=== PATIENT | male | born 1990 | race Caucasian/White ===

== ENCOUNTER 2018-03-15 03:35 | Observation (INO) ==
[2018-03-15 04:21] LABS: C-Reactive Protein 1.1 mg/L (0.0-0.9)
--- NOTE | 2018-03-15 05:38 | Emergency Department Note ---
ED Disposition Clinical Impression: Dyskinesia of gallbladder Disposition: Admitted as Observation Condition on Discharge: Good Instructions: DI for Acute Abdomen Referrals: Ra Melgoza MD [Primary Care Provider] - - Critical Care Critical Care Time: No Attestation: On 03/15/18, the high probability of a clinically significant, sudden or life threatening deterioration of the following system(s) required my full and direct attention, intervention and personal management. The time I documented below is in addition to time spent performing reported procedures but includes the following listed in this critical care notation. Medical Decision Making - Medical Records Medical records reviewed: Yes: I reviewed the patient's medical records. - Cuate Inquiry Pt receiving controlled substance: No Vital Signs: 03/15/18 03:51 03/15/18 07:30 03/15/18 08:11 Temperature 98.3 F 99 F Temperature Source Oral Oral Pulse Rate [Right] 88 81 Respiratory Rate 24 Blood Pressure [Right Arm] 115/72 121/68 Blood Pressure Mean [Right Arm] 86 85 Blood Pressure Source [Right Arm] Blood Pressure Position [Right Arm] 02 Sat by Pulse Oximetry 97 97 03/15/18 08:43 Temperature 99.2 F Temperature Source Oral Pulse Rate [Right] 90 Respiratory Rate Blood Pressure [Right Arm] 102/53 L Blood Pressure Mean [Right Arm] 69 Blood Pressure Source [Right Arm] Automatic Cuff Blood Pressure Position [Right Arm] Sitting 02 Sat by Pulse Oximetry 100 - Lab Data Lab results reviewed: Yes: I reviewed the patient's lab results. Lab Results 03/15/18 03:50: ESR 8 03/15/18 03:50: Troponin I < 0.02, C-Reactive Protein 1.1 H 03/15/18 03:50: Lactate 1.4 Orders (Tests/Meds): ED MEDICATIONS Discontinued Medications Generic Name Dose Route Start Last Admin Trade Name Freq PRN Reason Stop Dose Admin Hydromorphone HCl 1 mg 03/15/18 07:25 03/15/18 07:35 Dilaudid 2mg/Ml Syringe IV 03/15/18 07:26 1 mg ONCE ONE Administration Sodium Chloride 1,000 mls @ 999 mls/hr 03/15/18 04:00 03/15/18 04:01 Sod Chlor 0.9% 1000ml Bag IV 03/15/18 05:00 999 mls/hr .Q1H1M LISSETT Administration Sodium Chloride 1,000 mls @ 999 mls/hr 03/15/18 05:00 03/15/18 05:00 Sod Chlor 0.9% 1000ml Bag IV 03/15/18 06:00 999 mls/hr .Q1H1M LISSETT Administration Morphine Sulfate 4 mg 03/15/18 03:48 03/15/18 04:01 Morphine 4mg/Ml Syringe IV 03/15/18 03:49 4 mg ONCE ONE Administration Ondansetron HCl 4 mg 03/15/18 03:48 03/15/18 04:01 Zofran 4mg/2ml Vial IV 03/15/18 03:49 4 mg ONCE ONE Administration Promethazine HCl 12.5 mg 03/15/18 07:25 03/15/18 07:35 Phenergan 25mg/Ml 1ml Vial IV 03/15/18 07:26 12.5 mg ONCE ONE Administration Sodium Chloride 25 ml 03/15/18 07:25 03/15/18 07:35 Sod Chlor 0.9% 25ml Bag IV 03/15/18 07:26 25 ml ONCE ONE Administration ORDERS Category Date Time Status US gallbladder Stat Exams 03/15/18 06:06 Ordered Blood Culture Stat Micro 03/15/18 03:53 Ordered - US Data US Images: Gallbladder ED US Reviewed: Yes: I have viewed radiologist's interpretation Findings Narrative: see report - Physician Consults Physician Consulted: quincy Reason -: Admission Additional Consult: umair Reason -: Pt condition Nausea/Vomiting/Diarrhea HPI - General Chief complaint: Abdominal Pain Stated complaint: seen earlier,difficulty breathing with pain Time Seen by Provider: 03/15/18 04:30 Mode of Arrival: Ambulatory Source of Information: Patient, Spouse, Medical Record Limitations: No Limitations Description of Symptoms (Recalled from ER Triage Doc. by RN): Pt seen here earlier for abdominal pain, NVD and is back for worsening abdominal pain and vomiting. Pt states his states is upigastric into SHAWN ribs and lower back. - History of Present Illness HPI Narrative: pt with rt sided abd pain and was seen in the ed earlier and returns with same pain - pt with no fever or rash but reports pain rad to back at this time MD complaint: nausea, vomiting, abdominal pain Onset (ago): hour(s) Associated Abdominal Pain: Yes Location of pain: RUQ Severity: moderate Associated symptoms: nausea/vomiting - Related Data Home Medications Medication Instructions Recorded Confirmed Omeprazole [Omeprazole 20mg 20 mg PO DAILY 03/15/18 03/15/18 Capsule] Allergies Allergy/AdvReac Type Severity Reaction Status Date / Time INGREDIENT: NO KNOWN - NO Allergy Unknown Uncoded 05/25/17 15:00 KNOWN DRUG ALLERGY [facility] History I have reviewed the patient's past medical history: Yes Medical History: Reports:: MRSA - Social History Alcohol Intake: never - Psychiatric History Expresses thoughts of harming self/others: None Suicide Plan Description: No Plan ROS Obtained: Yes All systems reviewed & no additional complaints - Constitutional Constitutional: Denies fever(s) - Eyes Eyes: Denies change in vision - ENT Ears, Nose, Mouth, and Throat: Denies sore throat - Cardiovascular Cardiovascular: Denies chest pain at rest - Respiratory Respiratory: No cough - Gastrointestinal Gastrointestingal: Reports: as per HPI, abdominal pain, nausea, vomiting. Denies: diarrhea - Genitourinary Male Genitourinary: Denies hematuria - Musculoskeletal Musculoskeletal: Denies joint pain, Denies joint swelling - Integumentary/Breasts Skin/Breast: Denies rash - Neurologic Neurologic: Denies seizure-like activity Physical Exam - General General appearance: alert, in no apparent distress - Head Head exam: normocephalic - Eye Eye exam: Present: PERRL, EOMI. Absent: scleral icterus - ENT ENT exam: Present: mucous membranes moist - Neck Neck exam: Present: trachea midline - Respiratory Respiratory exam: Absent: respiratory distress - Cardiovascular Cardiovascular exam: Present: regular rate - Abdominal Exam Abdominal exam: Present: tenderness, Martin's sign Abdominal tenderness: Present: RUQ, moderate - Extremities Exam Extremities exam: Present: full ROM - Back Exam Back exam: Absent: CVA tenderness (R) - Neurological Exam Neurological exam: Present: alert, oriented X3, CN II-XII intact - Psychiatric Psychiatric exam: Present: normal affect - Skin Skin exam: Absent: rash
--- NOTE | 2018-03-15 09:59 | Pharmacy Consult Notes ---
[facility] Pharmacy VTE Monitoring - Patient Demographics Admission date: 03/15/18 Report Date: 03/15/18 Time: 09:59 Allergies/Adverse Reactions: Patient Allergies INGREDIENT: NO KNOWN - NO KNOWN DRUG ALLERGY Allergy (Unknown, Uncoded 05/25/17 15:00) Height: 1.91 m Weight: 123.377 kg Patient Problems: Current Active Problems Dyskinesia of gallbladder (Acute) - VTE Risk Was VTE Risk Assessment Performed: Yes VTE Score: 0 VTE Risk Level: Very Low Risk - Prophylaxis VTE Prophylaxis Ordered?: Yes Types of VTE Prophylaxis: TEDS Knee High Location of Applied Device: Bilateral Lower Extremeties - VTE Diagnosis Confirmed Treatment or plan recommended: Continue Current Treatment
--- NOTE | 2018-03-15 10:05 | History & Physical Report ---
*Admission Date: 03/15/18 *Chief complaint: Abdominal pain, nausea vomiting and diarrhea *History of present illness: Mr. Brice is a 27-year-old male with history of GERD who was in his usual state of health when about 8 PM he started having acute upper abdominal pain with nausea, vomiting, and diarrhea. He does have a history of GERD but is otherwise healthy. He states he did eat pizza for dinner last night. He presented initially to the emergency room around around [address] of the abdomen and pelvis was negative for any acute findings. He received medication for his vomiting and pain and was discharged to home. After arriving at home he immediately began with ongoing upper abdominal pain along with the nausea, vomiting and the diarrhea. He thus again presented to the emergency room. With this visit patient received 2000 mL of IV fluid, IV morphine, Dilaudid, Phenergan and Zofran. An ultrasound of his right upper quadrant with results pending. He was then admitted for further evaluation and treatment with a surgical consult. At the time of this exam patient feels he is much more comfortable. He is not nauseated and has had no further diarrhea since being in the ER. He states the pain in his upper abdomen is mostly just an ache H History Medical History: Reports:: Gastroesophageal Reflux Disease(GERD), MRSA Denies:: Atherosclerotic Heart Disease, Cancer, Coronary Artery Disease, Diabetes Mellitus Type 1, Diabetes Mellitus Type 2, Internal Pacemaker Other Surgeries: No: Pacemaker Amputation: No Fractures: No Comment: Surgical debridement of lower infected leg - *Social History Educational Level: Attended High School Tobacco Type: smokeless tobacco Alcohol Intake: never Occupational Status: employed Housing: house Household Members: spouse - Psychiatric History Expresses thoughts of harming self/others: None Suicide Plan Description: No Plan *Family Hx:: no Cancer, no Coronary Artery Disease, no Diabetes Review of Systems - Constitutional Denies body ache(s), Denies fever(s), Denies headache(s) - Eyes Denies change in vision - ENT Denies ear pain, Denies headache(s) Comments: Scratchy throat from vomiting and dry heaves - *Cardiovascular Denies chest pain, Denies shortness of breath, Denies leg swelling - *Respiratory Denies chest congestion, Denies cough, Denies shortness of breath - *Gastrointestinal Reports abdominal pain, Reports cramping, Reports loose stools, Reports nausea, Reports vomiting, Denies constipation, Denies heartburn, Denies vomiting blood, Denies bright, red blood in stools, Denies black, tarry stools - *Genitourinary Denies difficulty urinating - *Musculoskeletal Reports muscle cramps - *Neurologic Denies confusion, Denies dizziness, Denies headache(s), Denies seizure-like activity Meds Home Medications Medication Instructions Recorded Confirmed Type Omeprazole [Omeprazole 20mg 20 mg PO DAILY 03/15/18 03/15/18 History Capsule] Allergies Allergy/AdvReac Type Severity Reaction Status Date / Time INGREDIENT: NO KNOWN - NO Allergy Unknown Uncoded 05/25/17 15:00 KNOWN DRUG ALLERGY Exam Vital signs and Labs for Last 24 Hours: Temp Pulse Resp BP Pulse Ox 98.9 F 83 16 116/51 L 96 03/15/18 09:15 03/15/18 09:15 03/15/18 09:15 03/15/18 09:15 03/15/18 09:15 Laboratory Results - last 24 hr 03/15/18 03:50: ESR 8 03/15/18 03:50: Troponin I < 0.02, C-Reactive Protein 1.1 H 03/15/18 03:50: Lactate 1.4 Laboratory Tests 03/14/18 03/14/18 03/15/18 23:50 23:50 03:50 WBC 7.8 RBC 5.57 Hgb 17.1 Hct 51.4 MCV 92.3 MCH 30.6 MCHC 33.2 RDW 12.7 Plt Count 176 MPV 9.2 Neut % (Auto) 73.1 Lymph % (Auto) 16.3 [place]ima % (Auto) 7.2 Eos % (Auto) 3.2 Baso % (Auto) 0.2 Neut # (Auto) 5.7 Lymph # (Auto) 1.3 [place] # (Auto) 0.6 Eos # (Auto) 0.3 Baso # (Auto) 0.0 Sodium 141 Potassium 3.9 Chloride 103 Carbon Dioxide 30 Anion Gap 11.9 BUN 21 H Creatinine 1.61 H Estimated Creat Clear 119 Estimated GFR 53 L Est GFR ( Amer) 64 Glucose 107 H Lactate Calcium 9.0 Total Bilirubin 1.0 AST 27 ALT 56 Alkaline Phosphatase 102 Troponin I < 0.02 C-Reactive Protein 1.1 H Total Protein 8.1 Albumin 4.0 Globulin 4.1 H Albumin/Globulin Ratio 1.0 L Amylase 78 Lipase 219 03/15/18 03:50 WBC RBC Hgb Hct MCV MCH MCHC RDW Plt Count MPV Neut % (Auto) Lymph % (Auto) [place]ima % (Auto) Eos % (Auto) Baso % (Auto) Neut # (Auto) Lymph # (Auto) [place]ima # (Auto) Eos # (Auto) Baso # (Auto) Sodium Potassium Chloride Carbon Dioxide Anion Gap BUN Creatinine Estimated Creat Clear Estimated GFR Est GFR ( Amer) Glucose Lactate 1.4 Calcium Total Bilirubin AST ALT Alkaline Phosphatase Troponin I C-Reactive Protein Total Protein Albumin Globulin Albumin/Globulin Ratio Amylase Lipase I & O for Last 24 hours: Intake & Output 03/12/18 03/13/18 03/14/18 03/15/18 11:59 11:59 11:59 11:59 Intake Total 1000 / 1000 Balance 1000 / 1000 Weight 272 lb Radiology Reports for the Last 24 Hours: 03/14/2018 IMPRESSION: No acute abdominal or pelvic findings. Splenomegaly 03/15/2018 IMPRESSION: 1. No acute finding. 2. Scattered small nodular opacities which may be due to old granulomatous disease. Stability may be confirmed with follow-up - Constitutional no acute distress - *Routine HEENT Exam Head: Present: normocephalic, atraumatic Eye: Present: PERRL. Absent: conjunctival icterus, scleral injection ENT: Present: mucous membranes moist, nares patent - *Routine Neck Exam Present: supple, full ROM. Absent: carotid bruit, lymphadenopathy, thyromegaly Comments: . Bearded - *Routine Respiratory Exam Present: CTA bilaterally (Anteriorly and posteriorly) - *Routine Cardiovascular Exam Present: RRR - *Routine Abdominal Exam Present: soft Comments: Decreased bowel sounds; mildly tender in epigastrium and right upper quadrant - *Routine Extremities Exam Present: pulses intact. Absent: edema, calf tenderness - *Routine Neurological Exam Present: alert, oriented X3 Assessment and Plan (1) GERD (gastroesophageal reflux disease) Current visit: Yes Status: Acute Category: Medical Code(s): K21.9 - Gastro-esophageal reflux disease without esophagitis (2) Abdominal pain in male Current visit: No Status: Acute Category: Medical Code(s): R10.9 - Unspecified abdominal pain (3) Renal insufficiency Current visit: No Status: Acute Category: Medical Code(s): N28.9 - Disorder of kidney and ureter, unspecified (4) Leg cramps Current visit: Yes Status: Acute Category: Medical Code(s): R25.2 - Cramp and spasm - Assessment and plan all Dx Assessment and Plan for all problems:: IV fluids. Pain and nausea management. Surgeon has been consulted. Await results of right upper quadrant ultrasound. Discussed with radiology and he did have this done prior to admission and results are pending.
--- NOTE | 2018-03-15 12:08 | Consult Report ---
*Admission Date: 03/15/18 *Chief complaint: Upper abdominal pain and nausea/vomiting *History of present illness: This is a 27-year-old gentleman seen in consultation from Drs. Melgoza and Jerson for evaluation regarding gallbladder disease. He presented to the emergency department with a 12-hour history of pain in the upper abdomen and nausea/vomiting. Some diarrhea noted. No fevers. No jaundice. No definitive association with food. His evaluation included a CT scan and a right upper quadrant ultrasound. Findings have revealed a tiny umbilical hernia and sludge within the gallbladder with borderline thickening of the gallbladder wall. Review of Systems - Constitutional Denies chills - Eyes Denies change in vision - ENT Denies change in voice - *Cardiovascular Denies chest pain - *Respiratory Denies cough - *Gastrointestinal Reports abdominal pain, Reports loose stools, Reports nausea, Reports vomiting, Denies vomiting blood, Denies black, tarry stools - *Genitourinary Denies difficulty urinating - *Musculoskeletal Denies abnormal walking - Integumentary/Breasts Denies change in hair - *Neurologic Denies confusion, Denies dizziness, Denies headache(s), Denies seizure-like activity - Psychiatric Denies anxiety - Endocrine Denies cold intolerance - Hematologic/Lymphatic Denies easy bleeding - Allergic/Immunologic Denies GI upset with certain foods [facility] History Medical History: Reports:: Gastroesophageal Reflux Disease(GERD), MRSA Denies:: Atherosclerotic Heart Disease, Cancer, Coronary Artery Disease, Diabetes Mellitus Type 1, Diabetes Mellitus Type 2, Internal Pacemaker Other Surgeries: No: Pacemaker Amputation: No Fractures: No - *Social History Educational Level: Attended High School Tobacco Type: smokeless tobacco Alcohol Intake: never Occupational Status: employed Housing: house Household Members: spouse - Psychiatric History Expresses thoughts of harming self/others: None Suicide Plan Description: No Plan *Family Hx:: no Cancer, no Coronary Artery Disease, no Diabetes Meds Home Medications Medication Instructions Recorded Confirmed Type Omeprazole [Omeprazole 20mg 20 mg PO DAILY 03/15/18 03/15/18 History Capsule] Allergies Allergy/AdvReac Type Severity Reaction Status Date / Time INGREDIENT: NO KNOWN - NO Allergy Unknown Uncoded 05/25/17 15:00 KNOWN DRUG ALLERGY Exam Vital signs and Labs for Last 24 Hours: Temp Pulse Resp BP Pulse Ox 98.9 F 83 16 116/51 L 96 03/15/18 09:15 03/15/18 09:15 03/15/18 09:15 03/15/18 09:15 03/15/18 10:05 Laboratory Results - last 24 hr 03/15/18 03:50: ESR 8 03/15/18 03:50: Troponin I < 0.02, C-Reactive Protein 1.1 H 03/15/18 03:50: Lactate 1.4 I & O for Last 24 hours: Intake & Output 03/13/18 03/14/18 03/15/18 03/16/18 11:59 11:59 11:59 11:59 Intake Total 1000 / 1000 Balance 1000 / 1000 Weight 272 lb - Constitutional no acute distress - *Routine Respiratory Exam Absent: respiratory distress - *Routine Cardiovascular Exam Present: RRR - *Routine Abdominal Exam Present: soft, tenderness. Absent: distended, rebound Comments: upper abd Results - Labs Laboratory Results - last 24 hr 03/15/18 03:50: ESR 8 03/15/18 03:50: Troponin I < 0.02, C-Reactive Protein 1.1 H 03/15/18 03:50: Lactate 1.4 Assessment and Plan (1) GERD (gastroesophageal reflux disease) Current visit: Yes Status: Acute Category: Medical Code(s): K21.9 - Gastro-esophageal reflux disease without esophagitis (2) Abdominal pain in male Current visit: No Status: Acute Category: Medical Code(s): R10.9 - Unspecified abdominal pain (3) Renal insufficiency Current visit: No Status: Acute Category: Medical Code(s): N28.9 - Disorder of kidney and ureter, unspecified (4) Leg cramps Current visit: Yes Status: Acute Category: Medical Code(s): R25.2 - Cramp and spasm (5) Acute on chronic cholecystitis Current visit: Yes Status: Acute Category: Medical Code(s): K81.2 - Acute cholecystitis with chronic cholecystitis The patient is being scheduled for laparoscopic cholecystectomy (to be performed later today). I have discussed the risks and benefits including, but not limited to: Bleeding Infection Damage to surrounding tissue Inherent risks of sedation The patient agrees to proceed.
--- NOTE | 2018-03-15 17:23 | Operative Note ---
Date of procedure: 03/15/18 Pre-op Diagnosis:: Acute on chronic cholecystitis Post-op Diagnosis:: Same Procedure performed:: Laparoscopic cholecystectomy Surgeon:: Amish Chaidez MD Anesthesia: GETA Estimated blood loss (mL): 15 Operative findings:: Significant wall thickening around the infundibulum and significant fat stranding throughout mid gallbladder and infundibulum region Operative note:: After informed consent was obtained, the patient was taken to the operating room and placed in the supine position. General anesthesia was induced and the abdomen was prepped and draped in a sterile fashion. After infiltration with local anesthetic an infraumbilical incision was made. A Veress needle was placed in position. The abdomen was insufflated. A 5 mm optical trocar was placed in position. Under direct visualization, a 12 mm trocar was placed in the subxiphoid position and 2 additional 5 mm trocars were placed in the right upper quadrant. The gallbladder was elevated up and over the liver margin. The tissue on the cystic artery was carefully dissected. Metallic clips (x2) were utilized to control the artery and it was transected distally with harmonic aidan. The tissue around the cystic duct was carefully dissected. The entire region was very thickened and clip placement was not appropriate. The decision was made to proceed with a "dome down approach" with Endoloop control at the infundibulum. Endoloops (x2) were placed around the gallbladder entered at the infundibulum. The infundibulum was then transected distal to this point utilizing harmonic aidan. The gallbladder was placed in a retrieval bag and removed through the subxiphoid trocar site. The right upper quadrant was thoroughly irrigated. No active bleeding or bile leak was noted. Fascia at the subxiphoid trocar site was reapproximated utilizing the NeoClose device. The remaining trocars were removed. All wounds were irrigated and skin was closed with 4-0 Monocryl in a subcuticular fashion. Steri-Strips were applied. The patient's anesthetic agents were reversed and extubation was completed prior to transfer to recovery in stable condition. Condition: stable Disposition: PACU Specimens:: Gallbladder and contents Complications:: No immediate
--- NOTE | 2018-03-15 17:38 | Progress Note ---
[facility] Anesthesia Checklist - Patient Identification Patient Identification: Arm Band, Verbal (Name & ) - Structural Data Admitted From: Home Planned Operative Procedure/s: Laparoscopic Cholecystectomy Consent for Planned Operative Procedure(s) Verified: Yes Verified Documents: Surgical Consent, History and Physical - NPO Status Verified Time NPO: 00:00 - Additional verifications Anesthesia Reactions: No - Airway Assessment C-Spine Mobility Assessed: Yes TMJ Mobility Assessed: Yes Dentition: Good Dentition - Neurological Assessment Level of Consciousness: Awake Hx Seizures: No Numbness or tingling in extremities: No - Anesthesia Plan Anesthesia Risk discussed: Yes Anesthesia Plan: Verified ASA Class: II Anesthesia Type: General [facility] History I have reviewed the patient's past medical history: Yes Medical History: Reports:: Gastroesophageal Reflux Disease(GERD), MRSA Denies:: Atherosclerotic Heart Disease, Cancer, Coronary Artery Disease, Diabetes Mellitus Type 1, Diabetes Mellitus Type 2, Internal Pacemaker Other Medical History: Reports: Other (Smokes tobacco use) Other Surgeries: No: Pacemaker Amputation: No Fractures: No - *Social History Educational Level: Attended High School Tobacco Type: smokeless tobacco Alcohol Intake: never Occupational Status: employed Housing: house Household Members: spouse - Psychiatric History Expresses thoughts of harming self/others: None Suicide Plan Description: No Plan *Family Hx:: no Cancer, no Coronary Artery Disease, no Diabetes
--- NOTE | 2018-03-15 17:39 | Progress Note ---
[facility] Anesthesia Record Part II Discharge Time: 18:03 Destination: Medical Surgical Department PACU nurse assessment reviewed?: Yes Patient Condition:: Good Anesthesia Complications:: None
--- NOTE | 2018-03-15 17:39 | Progress Note ---
[facility] Anesthesia Record Part I Intake, IV Amount: 1,000 Estimated blood loss (mL): 20 Urine output (mL): 0 Blood Products used (#): none Blood Pressure: 106/53 SaO2: 96 Pulse Rate: 92 Respiratory Rate: 12 Temperature: 98.6 F Patient is:: Drowsy, Oral/Nasal airway, Stable Stable to PACU at:: 18:03
[2018-03-16 06:37] LABS: Albumin Level 2.8 gm/dL (3.4-5.0); Albumin/Globulin Ratio 0.8 (1.1-1.8); Anion Gap 9.8 mEq/L (5-15); Bilirubin,Total 1.6 mg/dL (0.2-1.0); Globulin 3.3 gm/dl (1.3-3.2); Potassium 3.8 mmoL/L (3.5-5.1); Total Protein,Serum 6.1 gm/dL (6.4-8.2)
[2018-03-16 06:43] LABS: Basophils % 0.1 % (0.1-2.0); Eosinophils % 0.7 % (0.1-12.0); Hematocrit 40.4 % (42.0-52.0); Hemoglobin 13.6 g/dL (14.1-18.0); Lymphocytes # 0.9 K/mm3 (0.7-4.5); Lymphocytes % 25.6 K/mm3 (10-50); Mean Corpuscular HGB Conc 33.8 g/dL (31.8-35.4); Mean Corpuscular Hemoglobin 30.8 pg (27.0-31.2); Mean Corpuscular Volume 91.1 fl (80-94); Mean Platelet Volume 8.8 fl (7.4-10.4); Monocytes # 0.4 K/mm3 (0.1-1.0); Monocytes % 10.5 % (1.7-9.3); Neutrophils # 2.2 K/mm3 (1.8-7.8); Platelet Count 152 K/mm3 (142-424); Red Blood Count 4.43 M/mm3 (4.60-6.20); Red Cell Distribution Width 12.5 % (11.5-17.5); White Blood Count 3.5 K/mm3 (4.8-10.8)
[2018-03-16 06:52] LABS: Calcium 7.9 mg/dL (8.5-10.1)
--- NOTE | 2018-03-16 07:03 | Progress Note ---
Subjective Patient reports: no new complaints (POD#1) Exam Vital signs and Labs for Last 24 Hours: Temp Pulse Resp BP Pulse Ox 98.1 F 61 16 121/67 97 03/16/18 04:27 03/16/18 04:27 03/16/18 04:27 03/16/18 04:27 03/16/18 04:27 Laboratory Results - last 24 hr 03/16/18 06:01: WBC 3.5 L D, RBC 4.43 L, Hgb 13.6 L, Hct 40.4 L, MCV 91.1, MCH 30.8, MCHC 33.8, RDW 12.5, Plt Count 152, MPV 8.8, Neut % (Auto) 63.0, Lymph % (Auto) 25.6, [place] % (Auto) 10.5 H, Eos % (Auto) 0.7, Baso % (Auto) 0.1, Neut # (Auto) 2.2, Lymph # (Auto) 0.9, [place] # (Auto) 0.4, Eos # (Auto) 0.0, Baso # (Auto) 0.0 03/16/18 06:01: Sodium 138, Potassium 3.8, Chloride 105, Carbon Dioxide 27, Anion Gap 9.8, BUN 14 D, Creatinine 1.26 D, Estimated Creat Clear 156, Estimated GFR 70, Est GFR ( Amer) 84 D, Glucose 108 H, Calcium 7.9 L D, Total Bilirubin 1.6 H, AST 232 H D, ALT 258 H D, Alkaline Phosphatase 138 H, Tot al Protein 6.1 L, Albumin 2.8 L D, Globulin 3.3 H, Albumin/Globulin Ratio 0.8 L I & O for Last 24 hours: Intake & Output 03/13/18 03/14/18 03/15/18 03/16/18 11:59 11:59 11:59 11:59 Intake Total 1000 / 1000 3 / 2273 Output Total 200 / 200 Balance 1000 / 1000 2072 / 2072 Weight 272 lb - Constitutional no acute distress - *Routine Cardiovascular Exam Present: RRR - *Routine Abdominal Exam Present: soft Comments: dressings intact Progress Note: A&P (1) GERD (gastroesophageal reflux disease) Status: Acute Current Visit: Yes (2) Abdominal pain in male Status: Acute Current Visit: No (3) Renal insufficiency Status: Acute Current Visit: No (4) Leg cramps Status: Acute Current Visit: Yes (5) Acute on chronic cholecystitis Status: Acute Assessment and plan: stable s/p laparoscopic cholecystectomy Follow-up morning labs Possible discharge home later today (as per primary service) with outpatient follow-up Current Visit: Yes
--- NOTE | 2018-03-16 08:08 | Progress Note ---
Internal Medicine - PN: Subj Interval history: Patient feels better this a.m. He is having some postoperative pain but otherwise feels better than yesterday. He is eating without nausea. He has not passed any gas or had a bowel movement. He is voiding with some difficulty starting his stream. Splane that this might be due to his pain medicine. He has ambulated in the room without difficulty. He would like to go home. Dr. Neumann's note appreciated. Noted elevated liver function studies today. Liver function studies with first ER visit 02/12/2018 were normal. Exam Vital signs and Labs for Last 24 Hours: Temp Pulse Resp BP Pulse Ox 97.8 F 80 18 107/68 L 98 03/16/18 07:49 03/16/18 07:49 03/16/18 07:49 03/16/18 07:49 03/16/18 07:49 Laboratory Results - last 24 hr 03/16/18 06:01: WBC 3.5 L D, RBC 4.43 L, Hgb 13.6 L, Hct 40.4 L, MCV 91.1, MCH 30.8, MCHC 33.8, RDW 12.5, Plt Count 152, MPV 8.8, Neut % (Auto) 63.0, Lymph % (Auto) 25.6, [place] % (Auto) 10.5 H, Eos % (Auto) 0.7, Baso % (Auto) 0.1, Neut # (Auto) 2.2, Lymph # (Auto) 0.9, [place] # (Auto) 0.4, Eos # (Auto) 0.0, Baso # (Auto) 0.0 03/16/18 06:01: Sodium 138, Potassium 3.8, Chloride 105, Carbon Dioxide 27, Anion Gap 9.8, BUN 14 D, Creatinine 1.26 D, Estimated Creat Clear 156, Estimated GFR 70, Est GFR ( Amer) 84 D, Glucose 108 H, Calcium 7.9 L D, Total Bilirubin 1.6 H, AST 232 H D, ALT 258 H D, Alkaline Phosphatase 138 H, Total Protein 6.1 L, Albumin 2.8 L D, Globulin 3.3 H, Albumin/Globulin Ratio 0.8 L I & O for Last 24 hours: Intake & Output 03/13/18 03/14/18 03/15/18 03/16/18 11:59 11:59 11:59 11:59 Intake Total 1000 / 999 2873 / 2873 Output Total 200 / 200 Balance 1000 / 1000 2673 / 2673 Weight 272 lb - Constitutional no acute distress Comments: Sitting up in the bed and appears comfortable - *Routine Respiratory Exam Present: CTA bilaterally (Anteriorly and posteriorly) - *Routine Cardiovascular Exam Present: RRR - *Routine Abdominal Exam Present: soft, tenderness (Postoperative) - *Routine Extremities Exam Absent: edema, calf tenderness - *Routine Neurological Exam Present: alert, oriented X3 Assessment and Plan (1) GERD (gastroesophageal reflux disease) Current visit: Yes Status: Acute Category: Medical Code(s): K21.9 - Gastro-esophageal reflux disease without esophagitis (2) Abdominal pain in male Current visit: No Status: Acute Category: Medical Code(s): R10.9 - Unspecified abdominal pain (3) Renal insufficiency Current visit: No Status: Acute Category: Medical Code(s): N28.9 - Disorder of kidney and ureter, unspecified (4) Leg cramps Current visit: Yes Status: Acute Category: Medical Code(s): R25.2 - Cramp and spasm (5) Acute on chronic cholecystitis Current visit: Yes Status: Acute Category: Medical Code(s): K81.2 - Acute cholecystitis with chronic cholecystitis - Assessment and plan all Dx Assessment and Plan for all problems:: Probably home today. Discussed diet and ambulation
--- NOTE | 2018-03-17 11:55 | Discharge Summary ---
General - General Admission date:: 03/15/18 Discharge date: 03/16/18 HPI HPI: Mr. Patel is a 27-year-old male with history of GERD who was in his usual state of health when about 8 PM he started having acute upper abdominal pain with nausea, vomiting, and diarrhea. He does have a history of GERD but is otherwise healthy. He states he did eat pizza for dinner last night. He presented initially to the emergency room around around [address] of the abdomen and pelvis was negative for any acute findings. He received medication for his vomiting and pain and was discharged to home. After arriving at home he immediately began with ongoing upper abdominal pain along with the nausea, vomiting and the diarrhea. He thus again presented to the emergency room. With this visit patient received 2000 mL of IV fluid, IV morphine, Dilaudid, Phenergan and Zofran. An ultrasound of his right upper quadrant was done with results pending. He was then admitted for further evaluation and treatment with a surgical consult. At the time of this exam patient feels he is much more comfortable. He is not nauseated and has had no further diarrhea since being in the ER. He states the pain in his upper abdomen is mostly just an ache Hospital Course Hospital Course: Dr. Chaidez saw the patient in consultation and the findings from his imaging showed a tiny umbilical hernia and sludge within the gallbladder with borderline thickening of the gallbladder wall. He performed a laparoscopic cholecystectomy. The patient tolerated the procedure well. He had some postoperative pain but otherwise was able to eat without nausea. He ambulated in the room without difficulty. He had a slight elevation in transaminases and bilirubin not unexpected on postoperative day 1 status post laparoscopic cholecystectomy. He was stable for discharge home from a surgical standpoint with outpatient follow- up in one week (repeat LFTs at follow-up). Objective Vital signs: Temp Pulse Resp BP Pulse Ox 97.8 F 80 18 107/68 L 98 03/16/18 07:49 03/16/18 07:49 03/16/18 07:49 03/16/18 07:49 03/16/18 08:00 Narrative: - Constitutional no acute distress - *Routine HEENT Exam Head: Present: normocephalic, atraumatic Eye: Present: PERRL. Absent: conjunctival icterus, scleral injection ENT: Present: mucous membranes moist, nares patent - *Routine Neck Exam Present: supple, full ROM. Absent: carotid bruit, lymphadenopathy, thyromegaly Comments: . Bearded - *Routine Respiratory Exam Present: CTA bilaterally (Anteriorly and posteriorly) - *Routine Cardiovascular Exam Present: RRR - *Routine Abdominal Exam Present: soft Comments: Decreased bowel sounds; mildly tender in epigastrium and right upper quadrant - *Routine Extremities Exam Present: pulses intact. Absent: edema, calf tenderness - *Routine Neurological Exam Present: alert, oriented X3 Results Labs on day of discharge: Preliminary micro results at discharge 03/15/18 03:53 Blood Culture - Preliminary Blood NO GROWTH AFTER 48 HOURS 03/15/18 03:53 Blood Culture - Preliminary Blood NO GROWTH AFTER 48 HOURS DS: Diagnosis - Discharge Diagnosis (1) GERD (gastroesophageal reflux disease) Status: Acute (2) Abdominal pain in male Status: Acute (3) Renal insufficiency Status: Acute (4) Leg cramps Status: Acute (5) Acute on chronic cholecystitis Status: Acute Discharge Plan - Patient Discharge Instructions ACTIVITY: Limited activity DIET: advance to your usual diet Additional Instructions: need repeat liver function studies just prior to outpatient follow-up next week Patient Instructions: Surgical Site Infection - Follow up Plan Follow up with: Amish Chaidez MD [Staff Physician] - 1 week Disposition: Home, Self-Care Prescriptions/Medication Reconciliation: Continue Omeprazole [Omeprazole 20mg Capsule] 20 mg PO DAILY #30 capsule.dr Melissa Phillips Orders: Liver Panel Time Frame: 1 Week, Location: None Selected
== END 2018-03-16 10:43 | disposition home or self-care (01) ==
LOC: 2ND 03:35 → ER 03:35 → 2ND 09:11
PROVIDERS: ADMIT Family Medicine; ATTEND Family Medicine

== ENCOUNTER 2021-05-30 20:55 | Day surgery (SDC) | payer BC, OTHER, SELFPAY ==
[2021-05-30] VITALS (9 sets, daily range): BP systolic 94–135; BP diastolic 46–90; PULSE 60–86; RESP 16–20; TEMP 36.2–36.6; O2SAT 92–98; BMI 34.0
--- NOTE | 2021-05-30 21:13 | XR_ITS ---
PROCEDURE INFORMATION: Exam: XR Chest Exam date and time: 05/30/2021 9:13 PM Age: 30 years old Clinical indication: Other: Feels like food stuck in mid chest area; Additional info: Food emblous TECHNIQUE: Imaging protocol: XR of the chest. Views: 2 views. Total images: 2 COMPARISON: CR CXR2V XR chest 2V 03/15/2018 3:48 AM FINDINGS: Lungs: Chronic granulomatous calcifications in the peripheral right apex and base unchanged. Normal pulmonary expansion. Pulmonary vasculature grossly normal. No gross pulmonary infiltrates or edema pattern. Pleural spaces: No pleural effusion. No pneumothorax. Heart/Mediastinum: Heart size normal. No gross radiographic evidence of esophageal dilatation. No tracheal/mediastinal shift. Bones/joints: No acute osseous abnormalities are identified. Intraperitoneal space: Right upper quadrant surgical clips suggest prior cholecystectomy. IMPRESSION: No acute findings. No significant radiographic change from 03/15/2018.
[2021-05-30 21:18] LABS: Basophils # 0.1 K/mm3 (0-0.2); Basophils % 1.8 % (0.1-2.0); Eosinophils # 0.4 K/mm3 (0.0-0.4); Eosinophils % 6.7 % (0.1-12.0); Hematocrit 53.2 % (42.0-52.0); Lymphocytes # 2.2 K/mm3 (0.7-4.5); Lymphocytes % 35.4 % (10-50); Mean Corpuscular HGB Conc 33.9 g/dL (31.8-35.4); Mean Corpuscular Hemoglobin 32.1 pg (27.0-31.2); Mean Corpuscular Volume 94.7 fl (80-94); Mean Platelet Volume 9.4 fl (7.4-10.4); Monocytes # 0.4 K/mm3 (0.1-1.0); Monocytes % 5.7 % (1.7-9.3); Neutrophils # 3.2 K/mm3 (1.8-7.8); Neutrophils % 50.5 % (37.0-80.0); Platelet Count 244 K/mm3 (142-424); Red Blood Count 5.62 M/mm3 (4.60-6.20); Red Cell Distribution Width 13.2 % (11.5-17.5); White Blood Count 6.3 K/mm3 (4.8-10.8)
[2021-05-30 21:27] LABS: Alanine Aminotransferase 71 U/L (12-78); Albumin/Globulin Ratio 1.3 (1.1-1.8); Alkaline Phosphatase 101 U/L (38-126); Anion Gap 12.8 mEq/L (5-15); Aspartate Amino Transferase 47 U/L (17-59); Bilirubin,Total 0.8 mg/dl (0.2-1.3); Blood Urea Nitrogen 24 mg/dl (9-20); Carbon Dioxide 30 mmol/L (22.0-30.0); Chloride 98 mmol/L (98-107); Creatinine Clearance Estimated 132 mL/min (50-200); Estimated Glomerular Filt Rate 56 ml/min (>60); GFR (African American) 67 ML/MIN (>60); Globulin 3.9 g/dL (1.3-3.2); Glucose 103 mg/dl (74-100); Potassium 3.8 mmoL/L (3.5-5.1); Sodium 137 mmol/L (136-145); Total Protein,Serum 8.9 g/dl (6.3-8.2)
[2021-05-30 21:32] LABS: C-Reactive Protein 1.7 mg/L (0-4)
[2021-05-30 21:45] LABS: Erythrocyte Sedimentation Rate 7 mm/hr (0-15)
[2021-05-30 21:46] LABS: Procalcitonin 0.073 ng/mL (0.0-2.0)
--- NOTE | 2021-05-30 22:34 | HMH.EDNVD ---
ED Disposition Clinical Impression: Esophageal obstruction due to food impaction Disposition: Still a Patient Condition on Discharge: Good Instructions: DI for Removal of Foreign Body From Esophagus Referrals: Ra Melgoza MD [Primary Care Provider] - Amish Chaidez MD [Staff Physician] - - Critical Care Critical Care Time: No Attestation: On 05/30/21, the high probability of a clinically significant, sudden or life threatening deterioration of the following system(s) required my full and direct attention, intervention and personal management. The time I documented below is in addition to time spent performing reported procedures but includes the following listed in this critical care notation. Medical Decision Making - Medical Records Medical records reviewed: Yes: I reviewed the patient's medical records. - [place] Inquiry Pt receiving controlled substance: No Vital Signs: 05/30/21 20:58 05/30/21 21:31 05/30/21 22:01 Temperature 97.9 F Temperature Source Oral Pulse Rate 70 64 Pulse Rate [Right] 74 Respiratory Rate 18 Blood Pressure 134/88 124/79 Blood Pressure [Right Arm] 135/90 Blood Pressure Mean [Right Arm] 105 02 Sat by Pulse Oximetry 95 97 98 Oxygen Delivery Method Room Air Room Air - Lab Data Lab results reviewed: Yes: I reviewed the patient's lab results. Lab Results 05/30/21 21:08: WBC 6.3, RBC 5.62, Hgb 18.0, Hct 53.2 H, MCV 94.7 H, MCH 32.1 H, MCHC 33.9, RDW 13.2, Plt Count 244, MPV 9.4, Neut % (Auto) 50.5, Lymph % (Auto) 35.4, [place] % (Auto) 5.7, Eos % (Auto) 6.7, Baso % (Auto) 1.8, Neut # (Auto) 3.2, Lymph # (Auto) 2.2, [place] # (Auto) 0.4, Eos # (Auto) 0.4, Baso # (Auto) 0.1, ESR 7 05/30/21 21:08: Sodium 137, Potassium 3.8, Chloride 98, Carbon Dioxide 30, Anion Gap 12.8, BUN 24 H, Creatinine 1.50 H, Estimated Creat Clear 132, Estimated GFR 56 L, Est GFR ( Amer) 67, Glucose 103 H, Calcium 10.0, Total Bilirubin 0.8, AST 47, ALT 71, Alkaline Phosphatase 101, C-Reactive Protein 1.7, Total Protein 8.9 H, Albumin 5.0, Globulin 3.9 H, Albumin/Globulin Ratio 1.3, Procalcitonin 0.073 Result diagrams: 05/30/21 21:08 05/30/21 21:08 Orders (Tests/Meds): ED MEDICATIONS Generic Name Dose Route Start Last Admin Trade Name Freq PRN Reason Stop Dose Admin Sodium Chloride 1,000 mls @ 999 mls/hr 05/30/21 21:15 05/30/21 21:19 Sod Chlor 0.9% 1000ml Bag IV 05/30/21 22:15 999 mls/hr .Q1H1M [place] Administration Discontinued Medications Generic Name Dose Route Start Last Admin Trade Name Freq PRN Reason Stop Dose Admin Glucagon 1 mg 05/30/21 21:16 05/30/21 21:20 Glucagon 1 Mg/Ml Vial IV 05/30/21 21:17 1 mg ONCE ONE Administration - Radiology Data #1 Image(s): Chest Image Reviewed: Yes I have reviewed radiologist's interpretation Preliminary Findings: Normal/NAD - Physician Consults Physician Consulted: umair Reason -: Pt condition Medical Decision Narrative: has esophageal fb will require surg to do egd Nausea/Vomiting/Diarrhea HPI - General Chief complaint: Skin/Abscess/Foreign Body Stated complaint: possible food stuck in throat Time Seen by Provider: 05/30/21 22:00 Mode of Arrival: Ambulatory Source of Information: Patient, Medical Record Limitations: No Limitations Description of Symptoms (Recalled from ER Triage Doc. by RN): pt states was eating shrimp and baked potatoes @ 4:30 this afternoon. pt has been unable to keep anything down after this. pt states he feels like something is stuck in esophagus - History of Present Illness HPI Narrative: lodged esophageal fb with no hx of same but has hx of gerd - reports happened about 1700 MD complaint: nausea Onset (ago): hour(s) Associated Abdominal Pain: No Severity: moderate Context: other (esophageal food ) Associated symptoms: denies other symptoms - Related Data Home Medications Medication Instructions Recorded Confirmed No Known Home Medications
--- NOTE | 2021-05-30 22:35 | PC.NURSE ---
DAVEY LAUREN speaking with Dr. Chaidez
--- NOTE | 2021-05-30 22:40 | PC.NURSE ---
notified house carpenter to call in surgery team
--- NOTE | 2021-05-30 22:43 | PC.NURSE ---
Surgery team paged: Jose returned call at [phone] Amy returned call at [phone] Dee Dee returned call at [phone]
[2021-05-30 22:48] LABS: Coronavirus 19, PCR Not Detected (NotDetected); Influenza A, PCR Not Detected (NotDetected); Influenza B, PCR Not Detected (NotDetected)
--- NOTE | 2021-05-30 22:55 | PC.NURSE ---
Dr Chaidez @ bedside
--- NOTE | 2021-05-30 23:33 | P.PCN_ITS ---
- Procedure: Date: 05/30/21 Patient Date of :: 1990 Procedure Performed:: Esophagogastroscopy with foreign body removal Indications:: Esophageal foreign body Performing Provider:: Amish Chaidez MD Referring Provider:: . Sedation:: Monitored anesthesia care Procedure:: After informed consent was obtained the patient was taken to the endoscopy [facility]. Sedation ensued after the patient was transferred to the left lateral decubitus position. Pulse, blood pressure, and oxygen saturation were monitored throughout the procedure. The endoscope was advanced to the distal esophagus where a food bolus was encountered. The food bolus was removed in a retrograde fashion utilizing a net device. The gastroscope was then advanced into the gastric lumen without difficulty. Retroflexion within the gastric lumen was accomplished. The gastroscope was carefully removed and the patient was transferred to recovery in stable condition. Please see findings and specimens below for detail. Findings:: Distal esophageal food bolus Diverticulum at 32 cm Somewhat tortuous esophagus with no distinct stricture Changes consistent with mild/early candidal infection of the mid esophagus Specimens:: None for pathology Recommendations:: Proton pump inhibition Diflucan ordered Barium swallow in near future for further evaluation with attention to both distal esophagus and area of diverticulum Complications:: No immediate Estimated blood obtained (mL): 0
--- NOTE | 2021-05-30 23:36 | HMH.ANESCL ---
[facility] Anesthesia Checklist - Patient Identification Patient Identification: Arm Band - Structural Data Admitted From: Emergency Dept Planned Operative Procedure/s: EGD/Removal of Esophageal Foreign Body Consent for Planned Operative Procedure(s) Verified: Yes Verified Documents: Surgical Consent, History and Physical - NPO Status Verified Time NPO: 17:00 - Additional verifications Anesthesia Reactions: No - Airway Assessment C-Spine Mobility Assessed: Yes (mp2) TMJ Mobility Assessed: Yes Dentition: Good Dentition - Neurological Assessment Level of Consciousness: Awake, Alert - Anesthesia Plan Anesthesia Risk discussed: Yes Anesthesia Plan: Verified ASA Class: I (e) Anesthesia Type: MAC [facility] History I have reviewed the patient's past medical history: Yes Medical History: Reports:: Gastroesophageal Reflux Disease(GERD), MRSA Denies:: Atherosclerotic Heart Disease, Cancer, Coronary Artery Disease, Diabetes Mellitus Type 1, Diabetes Mellitus Type 2, Internal Pacemaker, Seizures *Have you ever received a pneumonia vaccine?: No *Have you received a flu vaccine this season?: No Other Medical History: Reports: Other Anesthesia experience/problems:: nac Other Surgeries: Yes: Cholecystectomy. No: Pacemaker Amputation: No Fractures: No - *Social History Smoking Status: Never smoker Tobacco Type: smokeless tobacco Alcohol Intake: never Substance Use Type: denies use *Occupational Status:: employed Housing: house Household Members: spouse *Travel in the last 8 weeks: None Family Hx:: No significant family history
== END 2021-05-30 23:16 ==
LOC: ER 22:47 → SDC 06-02 09:46
PROVIDERS: Emergency Provider Emergency Medicine; PCP Family Medicine; Visit Provider Surgery
PROC: 0DJ08ZZ Inspection of Upper Intestinal Tract, Via Natural or Artificial Opening Endoscopic (ICD-10-PCS; CPT 43235; principal; 2021-05-30 23:00)
DX: T18.128A Food in esophagus causing other injury, initial encounter (principal); K21.9 Gastro-esophageal reflux disease without esophagitis; Z86.14 Personal history of Methicillin resistant Staphylococcus aureus infection
CPT/HCPCS: 43247; 71046; 80053; 84145; 85025; 85651; 86140; 99284; C9803; J1610; U0003; U0005

== ENCOUNTER → 2021-06-20 08:40 | Outpatient (CLI) | payer BC, SELFPAY ==
--- NOTE | 2021-06-20 08:54 | FL_ITS ---
FINAL REPORT CLINICAL HISTORY: . pt had surgery to remove a piece of steak on May 30 f/u 1.11 fluoro time FINDINGS: ESOPHAGRAM HISTORY: Dysphagia. History of foreign body removal from esophagus. PROCEDURE: The patient ingested barium. Effervescent crystals were also administered. Spot and overhead films were obtained. FINDINGS :There is a moderate sized traction diverticulum seen of the distal third of the esophagus. No esophageal stricture is identified. There is a small sliding-type hiatal hernia with a prominent esophageal ring. A 13 mm barium tablet passes through this region without delay. No gastroesophageal reflux was demonstrated during the exam. IMPRESSION: Moderate size esophageal diverticulum. Small sliding type hiatal hernia. Films reviewed , interpreted and dictated by Dr. Gibson. Transcribed by Nilson Garcia PA-C. Reviewed, Interpreted and Dictated by Danielito Gibson III, MD Transcribed by HERMINIO Head Authenticated by Danielito Gibson III, MD on 06/20/2021 10:42:50 AM [facility]
== END ==
PROVIDERS: PCP Family Medicine; Visit Provider Surgery
DX: K22.2 Esophageal obstruction (principal); T18.128A Food in esophagus causing other injury, initial encounter
CPT/HCPCS: 74220